=== PATIENT | female | born 1950 | race Caucasian/White ===

== ENCOUNTER → 2018-10-05 | Day surgery (SDC) | payer OTHER | END | disposition home or self-care (01) | LOC: FIMAGING 13:31 | PROVIDERS: ATTEND Radiology Vascular & Interventional Radiology | DX: A49.9 Bacterial infection, unspecified (principal); Z79.2 Long term (current) use of antibiotics; Z16.12 Extended spectrum beta lactamase (ESBL) resistance | CPT/HCPCS: 36573; 76937; 77001; C1751 ==